=== PATIENT | male | born 1995 | race Caucasian/White ===

== ENCOUNTER 2018-12-05 10:22 | Emergency (ER) | payer OTHER ==
[2018-12-05] MEDS ORDERED: ONDANSETRON HCL INJ/PF 4 MG/2 ML SDV IV ONE ×2 (10:39→11:36)
[2018-12-05] MEDS ORDERED: MORPHINE SULFATE 10 MG/ML INJ IV ONE (10:40)
--- NOTE | 2018-12-05 10:42 | ER Document Report ---
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 Patient reports 3 days ago he [place] He states that he is taking medicated mouthwash, ibuprofen and oxycodone for this. He reports the pain has been increasing and he is unable to fully open his mouth. Yesterday he started having a squeezing sensation in the left side of his chest. He denies any other associated symptoms with this but reports it is a severe squeezing pain that is intermittent. This morning he woke up and began vomiting. Exam: Mild trismus noted. Lung sounds clear and equal bilaterally. I have greeted and performed a rapid initial assessment of this patient. A comprehensive ED assessment and evaluation of the patient, analysis of test results and completion of the medical decision making process will be conducted by additional ED providers. I have specifically instructed the patient or family members with the patient to immediately return to any nursing staff should anything change in the patient's condition or with their chief complaint. This medical record was dictated with voice recognizing software. There may be grammatical, syntax errors that are unintended. Physical Exam - Vital signs Vitals: Temp Pulse Resp BP Pulse Ox 98 F 101 H 16 127/73 H 99 12/05/18 10:34 12/05/18 10:34 12/05/18 10:34 12/05/18 10:34 12/05/18 10:34 Course - Vital Signs Vital signs: Temp Pulse Resp BP Pulse Ox 98 F 101 H 16 127/73 H 99 12/05/18 10:34 12/05/18 10:34 12/05/18 10:34 12/05/18 10:34 12/05/18 10:34
[2018-12-05 11:36] LABS: ABSOLUTE EOSINOPHILS # (AUTO) 0.1 10^3/uL (0.0-0.6); ABSOLUTE LYMPHOCYTES (AUTO) 1.1 10^3/uL (0.5-4.7); ABSOLUTE MONOCYTES (AUTO) 2.1 10^3/uL (0.1-1.4); ABSOLUTE NEUT (AUTO) 9.9 10^3/uL (1.7-8.2); BASOPHILS % (AUTO) 0.3 % (0-2); EOSINOPHILS % (AUTO) 0.4 % (0-6); HEMATOCRIT 43.4 % (37.9-51.0); HEMOGLOBIN 14.9 g/dL (13.5-17.0); LYMPHOCYTES % (AUTO) 8.4 % (13-45); MEAN CORPUSCULAR HEMOGLOBIN 29.2 pg (27.0-33.4); MEAN CORPUSCULAR HGB CONC 34.3 g/dL (32.0-36.0); MEAN CORPUSCULAR VOLUME 85 fl (80-97); MONOCYTES % (AUTO) 15.7 % (3-13); PLATELET COUNT 241 10^3/uL (150-450); RED BLOOD COUNT 5.09 10^6/uL (4.35-5.55); RED CELL DISTRIBUTION WIDTH 12.9 % (11.5-14.0); SEGMENTED NEUTROPHILS % (AUTO) 75.2 % (42-78); TOTAL CELLS COUNTED % (AUTO) 100 %; WHITE BLOOD COUNT 13.2 10^3/uL (4.0-10.5)
[2018-12-05] MEDS ORDERED: HYDROMORPHONE HCL INJ/PF 2 MG/ML AMPULE IV ONE ×5 (11:40→20:50)
[2018-12-05] MEDS: NORMAL SALINE 1000 ML 1,000 ML IV PRN ×2 (11:52→13:15)
--- NOTE | 2018-12-05 11:54 | ER Document Report ---
ED General - General Mode of Arrival: Ambulatory <DANI CASTELLON - Last Filed: 12/05/18 14:57> <ANTONETTESHIRLEY - Last Filed: 12/06/18 02:00> - General Chief Complaint: Toothache Stated Complaint: MOUTH PAIN Time Seen by Provider: 12/05/18 10:32 Notes: This patient is complaining of severe jaw pain where he had 4 wisdom teeth removed Friday. He is currently taking Percocet fives and ibuprofen 400 mg without pain relief. This morning, he is been vomiting and has vomited 5 times. Pain has increased. Has also developed some anterior chest pain. Denies any fever. (DANI CASTELLON) Past Medical History - General Information source: Patient - Social History Smoking Status: Unknown if Ever Smoked Family History: Reviewed & Not Pertinent Patient has suicidal ideation: No Patient has homicidal ideation: No Past Surgical History: Reports: Hx Abdominal Surgery - x2 Hernia repair, Hx Appendectomy <DANI CASTELLON - Last Filed: 12/05/18 14:57> Review of Systems <DANI CASTELLON - Last Filed: 12/05/18 14:57> - Review of Systems Notes: CONSTITUTIONAL : Denies fever. CARDIOVASCULAR: Patient has also developed some chest pains today. See HPI. RESPIRATORY: Denies cough, chest congestion, or shortness of breath. GASTROINTESTINAL: Denies abdominal pain but has had some nausea and vomiting,. GENITOURINARY: Denies difficulty or painful urinating, urinary frequency, blood in urine. (DANI CASTELLON) Physical Exam - Vital signs Interpretation: Normal <DANI CASTELLON - Last Filed: 12/05/18 14:57> - Vital signs Vitals: Temp Pulse Resp BP Pulse Ox 98.0 F 101 H 16 127/73 H 99 12/05/18 10:32 12/05/18 10:32 12/05/18 10:32 12/05/18 10:32 12/05/18 10:32 Notes: PHYSICAL EXAMINATION: GENERAL: Well-appearing, no acute distress. HEAD: Atraumatic, normocephalic. Face: Patient has generalized swelling in the mandibular and submandibular region, although very minimal swelling in the submandibular region. Can only open his teeth a certain amount because of the pain. Says he has trouble swallowing saliva because of the pain. NECK: Normal range of motion, supple. LUNGS: Breath sounds clear and equal bilaterally. HEART: Regular rate and rhythm without murmurs heard. ABDOMEN: Soft, nontender. No guarding or rebound or masses felt. (DANI CASTELLON) Course - Laboratory Result Diagrams: 12/05/18 11:12 12/05/18 11:12 <DANI CASTELLON - Last Filed: 12/05/18 14:57> - Laboratory Result Diagrams: 12/05/18 11:12 12/05/18 11:12 <SHIRLEY WHITMAN - Last Filed: 12/06/18 02:00> - Re-evaluation Re-evalutation: 12/05/18 14:58 Patient has complained of feeling as if something was stuck in his throat and when he coughed, it came out as some yellow-white looking phlegm. It was cultured. Decided to give the patient a gram of Rocephin IV just as a precaution for infection. I am unable to get a really good view of the patient's posterior oropharynx and uvula so I am ordering a CT scan of the soft tissues of the neck to make sure the patient's airway is intact. Patient says he is continued to have pain, but has not shown any deterioration in his condition or vital signs. (DANI CASTELLON) 12/05/18 20:50 Transport at bedside, patient complaining of pain, given another 0.5 mg of Dilaudid IV. States he still having difficulty swallowing however there is no obvious drooling and there is no respiratory distress. Patient admits it is improved compared to prior. Stable for transport. 12/06/18 02:00 CT scan shows post wisdom tooth extraction, 1.8 x 1 cm hypodense fluid c onnection in the right pterygoid muscles of hematoma versus abscess, asymmetric swelling throughout the right pharyngeal tonsil, right lateral wall of the hypopharynx, right epiglottis and aryepiglottic fold. Causes moderate narrowing of the airway. (SHIRLEY WHITMAN) - Vital Signs Vital signs: Temp Pulse Resp BP Pulse Ox 98.0 F 70 16 130/81 H 99 12/05/18 20:00 12/05/18 20:00 12/05/18 20:00 12/05/18 20:00 12/05/18 20:00 - Laboratory Laboratory results interpreted by me: 12/05/18 12/05/18 11:12 11:12 WBC 13.2 H Lymph % (Auto) 8.4 L Sherman % (Auto) 15.7 H Absolute Neuts (auto) 9.9 H Absolute Monos (auto) 2.1 H Sodium 136.0 L Chloride 95 L Total Bilirubin 1.6 H Discharge <DANI CASTELLON - Last Filed: 12/05/18 14:57> <SHIRLEY WHITMAN - Last Filed: 12/06/18 02:00> - Discharge Clinical Impression: Localized soft tissue swelling, Status post tooth extraction Condition: Stable Disposition: [facility]
[2018-12-05 12:00] LABS: ALBUMIN 4.3 g/dL (3.5-5.0); ALKALINE PHOSPHATASE 99 U/L (38-126); ANION GAP 11 (5-19); ASPARTATE AMINO TRANSFERASE 17 U/L (17-59); BILIRUBIN,DIRECT 0.2 mg/dL (0.0-0.4); BILIRUBIN,TOTAL 1.6 mg/dL (0.2-1.3); BLOOD UREA NITROGEN 11 mg/dL (7-20); CALCIUM 9.9 mg/dL (8.4-10.2); CARBON DIOXIDE 30 mmol/L (22-30); CHLORIDE 95 mmol/L (98-107); GLUCOSE 98 mg/dL (75-110); POTASSIUM 4.4 mmol/L (3.6-5.0); TOTAL PROTEIN 6.8 g/dL (6.3-8.2)
[2018-12-05] MEDS ORDERED: CEFTRIAXONE 1 GM/D5W RTU 1 GM/50 ML RTUPB IV ONE ×2 (14:06→15:00)
--- NOTE | 2018-12-05 15:49 | RADIOLOGY REPORT (SQ) ---
EXAM DESCRIPTION: CT SOFT TISSUE NECK WITH COMPLETED DATE/TIME: 12/05/2018 3:07 pm REASON FOR STUDY: 4 wisdom teeth removed Wed,pain,swelling COMPARISON: None. TECHNIQUE: Post IV contrasted scanning from skull base through lung apices with review of bone, soft tissue and lung windows. Reconstructed coronal and sagittal MPR images reviewed. All images stored on PACS. All CT scanners at this facility use dose modulation, iterative reconstruction, and/or weight based d osing when appropriate to reduce radiation dose to as low as reasonably achievable (ALARA). [facility]: Dose Right [facility]: CareDose [facility]: Dose Right [facility]: Teradose 4D [facility]: [employer] CONTRAST TYPE AND DOSE: contrast/concentration: Isovue 350.00 mg/ml; Total Contrast Delivered: 74.0 ml; Total Saline Delivered: 55.0 ml RENAL FUNCTION: None required. The patient is less than 50 years old. RADIATION DOSE: CT Rad equipment meets quality standard of care and radiation dose reduction techniq ues were employed. CTDIvol: 17.8 mGy. DLP: 562 mGy-cm. . LIMITATIONS: None. FINDINGS: Patient has had all 4 wisdom teeth extracted. Air bubbles are seen in the tooth sockets. A 1.8 x 1 cm hypodense fluid collection is present in the right pterygoid muscles on axial image 26 a nd coronal image 35. This could represent a hematoma or abscess. There is inflammation with stranding of the fat along the right parapharyngeal space and right subman dibular triangle. Asymmetric soft tissue swelling of the right pharyngeal tonsil is present on axial image 25 without significant airway compromise. There is asymmetric mucous membrane thickening along the right lateral hypopharyngeal wall, rightward epiglottis and area epiglottic fold. This causes moderate supraglottic airway narrowing, best shown on coronal image 41 and axial image 35-40. This report was discussed with Dr. Valles in the emerge ncy room. SKULL BASE: Inferior brain parenchyma in the field of view is unremarkable. MAJOR SALIVARY GLANDS: No solid or cystic masses. Inflammation in the right submandibular triangle a s above. LYMPHADENOPATHY: No adenopathy. MUCOSAL MASSES OR ASYMMETRY: As above LARYNX/CORDS: As above VASCULAR STRUCTURES: The major vessels are patent. LUNG APICES: Clear. BONES: Intact. THYROID: Normal size. No masses. PARANASAL SINUSES: Clear. OTHER: No other significant finding. IMPRESSION: Post wisdom tooth extraction. And CT socket filled with a air are present in the mandib le and maxilla 1.8 x 1 cm hypodense fluid collection in the right pterygoid muscles, hematoma versus abscess Asymmetric swelling throughout the right pharyngeal tonsil, right lateral wall of the hypopharynx, ri ght epiglottis and area epiglottic fold. This causes moderate airway narrowing. Findings were discu ssed with Dr. Valles in the emergency room TECHNICAL DOCUMENTATION: JOB ID: [id number] Quality ID # [id number]: Final reports with documentation of one or more dose reduction techniques (e.g., Au tomated exposure control, adjustment of the mA and/or kV according to patient size, use of iterative reconstruction technique) 2010 [employer]- All Rights Reserved Reading location - IP/workstation name: [email or web address]
[2018-12-05 21:33] VITALS: BP 130/81
--- NOTE | 2018-12-05 21:47 | EKG REPORT ---
SEVERITY:- OTHERWISE NORMAL ECG - SINUS ARRHYTHMIA, RATE [id number] : Confirmed by: Franck Bojorquez MD 05-Dec-2018 21:47:19
== END 2018-12-05 20:15 ==
LOC: ER 10:22
DX: R22.0 Localized swelling, mass and lump, head (principal); J35.1 Hypertrophy of tonsils; R68.84 Jaw pain; R07.9 Chest pain, unspecified; R11.10 Vomiting, unspecified; R05 Cough; K08.409 Partial loss of teeth, unspecified cause, unspecified class; R13.10 Dysphagia, unspecified
CPT/HCPCS: 93005; 36415; 87070; 85025; 80053; 84484; 70491; 93010; J2270; J1170; J2405; J7030; J0696; 96361; 96365; 96375; 96376; 99284